=== PATIENT | female | born 1965 | race African-American/Black ===

== ENCOUNTER 2020-03-05 06:35 | Outpatient (CLI) | payer OTHER ==
[2020-03-06 11:59] LABS: SARS-CoV-2 MS2 Positive; SARS-CoV-2 N Gene Negative; SARS-CoV-2 S Gene Negative; SARS-CoV-2 by NAA Not Detected (NotDetected); SARS-CoV-2 orf1ab Negative
== END 2020-03-05 06:36 | disposition home or self-care (01) ==
LOC: EDBD → LABBT 06:35
PROVIDERS: ATTEND Orthopaedic Surgery
DX: G56.03 Carpal tunnel syndrome, bilateral upper limbs (principal); Z20.828 Contact with and (suspected) exposure to other viral communicable diseases
CPT/HCPCS: 87635; U0003

== ENCOUNTER 2020-03-10 05:45 | Day surgery (SDC) | payer OTHER ==
--- NOTE | 2020-03-09 09:16 | HP ---
HISTORY OF PRESENT ILLNESS: The patient is a 54-year-old female with a [id number] of pain and tingling in both hands, right much greater than the left. She was previously treated with splinting and injections and ibuprofen, which gave some relief, but she has been not able to tolerate NSAIDs because of acid reflux. Her symptoms gradually increased recently. Previous electrodiagnostic studies by Dr. Morgan did reveal carpal tunnel syndrome on the right. She has had increasing and persistent symptoms that are now interfering with her day-to-day activities and keeping her awake at night. PAST MEDICAL HISTORY: The patient has a history of hypertension, reflux, and hyperlipidemia. CURRENT MEDICATIONS: Include fluoxetine, hydrochlorothiazide, amlodipine, Lipitor, famotidine, Flexeril, and lisinopril. ALLERGIES: SHE HAS NO KNOWN ALLERGIES. FAMILY HISTORY: Otherwise unremarkable. SOCIAL HISTORY: Otherwise unremarkable. REVIEW OF SYSTEMS: Otherwise unremarkable. PHYSICAL EXAMINATION: GENERAL: Shows a healthy appearing female. HEENT: Unremarkable. NECK: Supple. CHEST: Clear. HEART: Regular rate and rhythm. ABDOMEN: Soft and nontender. PELVIC: Deferred. RECTAL: Deferred. BREASTS: Deferred. EXTREMITIES: Pertinent findings to both wrists. There is full range of motion bilaterally. There is some questionable slight atrophy in the thenar eminence on the left. There is tenderness over the median nerve bilaterally. There is a positive Tinel sign and positive Phalen test on the right, negative on the left. There is subjective numbness in the median nerve distribution bilaterally, right greater than the left. There is good capillary refill and palpable distal pulses. There is no crepitus or instability. No bony tenderness. IMPRESSION: Bilateral carpal tunnel syndrome, right greater than left. PLAN: Endoscopic possible open right carpal tunnel release. The nature of the surgery, length of recovery, and potential complications such as infection, loss of motion, incomplete relief, nerve injury, recurrence, need for additional treatment, and repeat surgery have been discussed in detail. She may eventually require similar procedure on the left when she has recovered from the right. Job ID: [id number]
[2020-03-09 10:23] VITALS: BMI 43.2
[2020-03-10] MEDS ORDERED: Fentanyl 100 MCG/2 ML VIAL ONE ×2 (06:25→08:35)
[2020-03-10] MEDS ORDERED: Midazolam HCl 2 mg/2 ml Vial ONE (06:25)
[2020-03-10] MEDS ORDERED: Lidocaine 1% (PF) 30 ML VIAL ONE (06:39)
[2020-03-10] MEDS ORDERED: Labetalol HCl 100 MG/20 ML VIAL ONE (08:37)
--- NOTE | 2020-03-10 08:47 | OP ---
DATE OF PROCEDURE: 03/10/2020 ANESTHESIA: General. PREOPERATIVE DIAGNOSIS: Right carpal tunnel syndrome. POSTOPERATIVE DIAGNOSIS: Right carpal tunnel syndrome. PROCEDURE PERFORMED: Right endoscopic carpal tunnel release. DESCRIPTION OF PROCEDURE: After satisfactory anesthesia was induced in supine position, the patient was prepped and draped in routine manner. The right arm was elevated and exsanguinated with an Esmarch bandage and the tourniquet inflated to 250 mmHg. A 2 cm transverse incision was made in the proximal wrist flexion crease, carried down through the subcutaneous tissues and bleeding points were controlled with Bovie cautery. Using sharp and blunt dissection, a distally-based flap at the deep forearm fascia was developed and retracted distally. Palmaris longus tendon was retracted radially. Proximal edge of the deep forearm fascia was split under direct visualization with small scissors to make sure there was no proximal impingement of the median nerve. Synovial elevator was introduced beneath the transverse carpal ligament and the synovium cleaned from the under surface. Carpal tunnel dilators were inserted. The [employer] endoscopic carpal tunnel system was introduced beneath the transverse carpal ligament inline with the ring finger. The distal edge of the ligament was easily identified and then divided in a distal to proximal direction by pulling the trigger of the assembly and engaging the knife, and withdrawing the scope proximally. This was done at several stages to make sure there was complete division of the transverse carpal ligament. After withdrawing the scope, the carpal tunnel dilator could be inserted in the carpal tunnel and there was markedly improved passage and subcutaneous position of the instrument. The scope was reintroduced into the carpal tunnel. There was wide separation of the 2 leaves of the transverse carpal ligament. The tourniquet was released after 6 minutes. There was no excessive bleeding and the scope was withdrawn. The wound was thoroughly irrigated and closed with running subcuticular 3-0 nylon. Sterile dressing was applied and the patient immobilized in a Velcro wrist splint. She was awakened and taken to the recovery room in stable condition. There were no apparent intraoperative complications. The estimated blood loss was negligible. The patient will be discharged home in satisfactory condition, instructed on ice elevation, and given written wound care instructions. She has [place] at home for pain. She will be rechecked in my office in approximately two weeks or sooner if there are any problems prior to that time. Job ID: [id number]
[2020-03-10] MEDS ORDERED: HYDROcodone/Acetaminophen 5/325 mg Tablet ONE (09:45)
[2020-03-10] MEDS ORDERED: Ketorolac Tromethamine 30 MG/ML VIAL ONE (12:08)
[2020-03-10] MEDS ORDERED: Ondansetron PF 4 MG/2 ML Vial ONE (12:08)
[2020-03-10] MEDS ORDERED: PROPOFOL 200 MG/20 ML VIAL ONE (12:08)
[2020-03-10] MEDS ORDERED: Lidocaine 1% PF 5 ML VIAL ONE (12:08)
[2020-03-10] MEDS ORDERED: Dexamethasone 20 MG/5 ML VIAL ONE (12:08)
== END 2020-03-10 10:20 | disposition home or self-care (01) ==
LOC: SDC 05:45
PROVIDERS: ATTEND Orthopaedic Surgery
PROC: 01N54ZZ Release Median Nerve, Percutaneous Endoscopic Approach (ICD-10-PCS; principal; 2020-03-10)
DX: G56.03 Carpal tunnel syndrome, bilateral upper limbs (principal); I10 Essential (primary) hypertension; E78.5 Hyperlipidemia, unspecified; K21.9 Gastro-esophageal reflux disease without esophagitis; Z79.899 Other long term (current) drug therapy
CPT/HCPCS: J0690; J1100; J1885; J2001; J2250; J2405; J2704; J3010